=== PATIENT | female | born 1950 | race African-American/Black ===

== ENCOUNTER 2018-12-10 20:18 | Emergency (ER) | payer MEDICARE, MEDICAID ==
[~2018-12-10] VITALS: Ht 170.2 cm; Wt 68.0 kg
[2018-12-10] MEDS ORDERED: SILVER SULFADIA10 GM MC (20:26)
[2018-12-10] MEDS ORDERED: MIDODRINE HCL5 MG ORAL (20:26)
[2018-12-10] MEDS ORDERED: CALCIUM ACETAT667 M1 PO (20:26)
[2018-12-10] MEDS ORDERED: SENSIPAR30 MG ORAL (20:26)
[2018-12-10] MEDS ORDERED: BISACODYL5 MG ORAL (20:26)
[2018-12-10] MEDS ORDERED: MIRTAZAPINE15 M3 ORAL (20:26)
[2018-12-10] MEDS ORDERED: RENVELA2.4 GM ORAL (20:26)
[2018-12-10] MEDS ORDERED: LACTULOSE20 GM/301 ORAL (20:26)
[2018-12-10] MEDS ORDERED: ASPIR 8181 MG ORAL (20:26)
[2018-12-10 20:43] VITALS: BP 130/103
[2018-12-10] MEDS ORDERED: Tylenol #3 tab (300mg/30mg) PO ONE (20:45)
--- NOTE | 2018-12-10 20:45 | NUR ---
ED Nurse Note: pt was brought in by [facility] s/p fall, c/o left knee pain, pt states she was walking to restroom and fell and hit her leg. ptAA&ox4, gcs=15, skin warm and dry, resp even and unlabored, noted deformity and contusion on left knee, +permacath on right upper chest, noted old fistula site on BUE. Noted dressing in BLE, pt states home health nurse came and did dressing because she has ulcer on her legs. 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 noted skin tear on left 2nd and 3rd toe area. 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 RA. blanket provided for extra comfort.
--- NOTE | 2018-12-10 20:48 | Emergency Room Report ---
History of Present Illness General Chief Complaint: Multiple Trauma/Fall Source: Patient (Kelvin Lakhani MD) Present Illness HPI 68-year-old female presents ED for evaluation. Patient brought in by EMS status post fall. States that she tripped and fell at home tonight. In her bathroom. States she normally walks with a walker or wheelchair for assistance. Denies hitting her head or LOC. Complaining of left knee pain. Pain is throbbing, 7 out of 10, nonradiating. Denies any other injuries. History of end-stage renal disease. Gets dialysis Thursday and Thursday. States she is compliant with her dialysis. No other aggravating relieving factors. Denies any other associated symptoms (Kelvin Lakhani MD) Allergies: Coded Allergies: HYDROCHLOROTHIAZIDE (Verified Allergy, Unknown, 12/10/18) lightheaded loss of equilibrium NSAIDS (NON-STEROIDAL ANTI-INFLAMMA (Verified Allergy, Unknown, 12/10/18) PENICILLINS (Verified Allergy, Unknown, 12/10/18) Patient History Past Medical History: DM, HTN, asthma, renal disease, dialysis Past Surgical History: none Pertinent Family History: none Social History: Denies: smoking, alcohol use, drug use Last Menstrual Period: n/a Now: No Immunizations: UTD Reviewed Nursing Documentation: PMH: Agreed; PSxH: Agreed (Kelvin Lakhani MD) Nursing Documentation-PMH Hx Cardiac Problems: Yes - hyperlipidemia Hx Hypertension: Yes - htn Hx Asthma: Yes - asthma Hx Diabetes: Yes - type 2 Hx Dialysis: Yes - shunt upper right chest, dialysis Sat, ,Thu, (Kelvin Lakhani MD) Review of Systems All Other Systems: negative except mentioned in HPI (Kelvin Lakhani MD) Physical Exam Vital Signs Date Time Temp Pulse Resp B/P (MAP) Pulse Ox O2 Delivery O2 Flow Rate FiO2 12/10/18 20:16 98.4 80 18 109/51 98 Room Air Sp02 EP Interpretation: reviewed, normal General Appearance: no apparent distress, alert, GCS 15, non-toxic Head: normocephalic Eyes: bilateral eye normal inspection, bilateral eye PERRL ENT: normal ENT inspection Neck: normal inspection Respiratory: other - permacath R side chest Cardiovascular #1: normal inspection Gastrointestinal: normal inspection Rectal: deferred Genitourinary: no CVA tenderness Musculoskeletal: tender - L knee Neurologic: alert, oriented x3, responsive, motor strength/tone normal, sensory intact, speech normal Psychiatric: normal inspection Skin: other - old AV fistula bilateral upper extremtiies. no bruit detected. Lymphatic: normal inspection (Kelvin Lakhani MD) Procedures Splinting Splinting : Consent: Verbal Location: Left knee Pre-Made Type: knee immobilizer Pre-Proc Neuro Vasc Exam: normal Post-Proc Neuro Vasc Exam: normal Patient Tolerated: Well Complications: None (Saman Alvarenga DO) Medical Decision Making Diagnostic Impression: Primary Impression: Renal failure Additional Impression: Patellar sleeve fracture of left knee ER Course Please refer to the initial note for the history exam and presentation Patient's imaging study does reveal midpatellar fracture therefore patient was placed into a Knee immobilizer On reevaluation patient appears somewhat debilitated On attempt of stenting the patient up with crutches patient is unable to utilize crutches unable to bear weight on one leg Patient has a extremely poor outpatient disposition Request for admission was made and secondary to the patient's insurance is requested for transfer at primary facility Labs Test 12/10/18 21:16 White Blood Count 5.8 K/UL (4.8-10.8) Red Blood Count 3.69 M/UL (4.20-5.40) Hemoglobin 9.9 G/DL (12.0-16.0) Hematocrit 32.9 % (37.0-47.0) Mean Corpuscular Volume 89 FL (80-99) Mean Corpuscular Hemoglobin 26.8 PG (27.0-31.0) Mean Corpuscular Hemoglobin Concent 30.1 G/DL (32.0-36.0) Red Cell Distribution Width 15.0 % (11.6-14.8) Platelet Count 254 K/UL (150-450) Mean Platelet Volume 6.4 FL (6.5-10.1) Neutrophils (%) (Auto) 76.2 % (45.0-75.0) Lymphocytes (%) (Auto) 12.4 % (20.0-45.0) Monocytes (%) (Auto) 9.3 % (1.0-10.0) Eosinophils (%) (Auto) 0.9 % (0.0-3.0) Basophils (%) (Auto) 1.2 % (0.0-2.0) Sodium Level 139 MMOL/L (136-145) Potassium Level 4.0 MMOL/L (3.5-5.1) Chloride Level 105 MMOL/L (98-107) Carbon Dioxide Level 23 MMOL/L (21-32) Anion Gap 11 mmol/L (5-15) Blood Urea Nitrogen 27 mg/dL (7-18) Creatinine 5.4 MG/DL (0.55-1.30) Estimat Glomerular Filtration Rate 9.6 mL/min (>60) Glucose Level 169 MG/DL (74-106) Calcium Level 10.0 MG/DL (8.5-10.1) Total Bilirubin 0.3 MG/DL (0.2-1.0) Aspartate Amino Transf (AST/SGOT) 9 U/L (15-37) Alanine Aminotransferase (ALT/SGPT) 9 U/L (12-78) Alkaline Phosphatase 136 U/L (46-116) Total Creatine Kinase 30 U/L (26-308) Creatine Kinase MB < 0.5 NG/ML (0.0-3.6) Creatine Kinase MB Relative Index 1.6 Total Protein 8.2 G/DL (6.4-8.2) Albumin 2.7 G/DL (3.4-5.0) Globulin 5.5 g/dL Albumin/Globulin Ratio 0.5 (1.0-2.7) (Saman Alvarenga DO) Rhythm Strip Diag. Results EP Interpretation: yes Rate: 95 Rhythm: NSR, no PVC's, no ectopy (Saman Alvarenga DO) Chest X-Ray Diagnostic Results Chest X-Ray Diagnostic Results : Chest X-Ray Ordered: Yes # of Views/Limited/Complete: 1 View Indication: Chest Pain EP Interpretation: Yes Interpretation: no consolidation, no effusion, no pneumothorax Impression: No acute disease Electronically Signed by: Saman Alvarenga DO (Saman Alvarenga DO) Other X-Ray Diagnostic Results Other X-Ray Diagnostic Results : X-Ray ordered: left knee # of Views/Limited Vs Complete: 4 View Indication: Pain EP Interpretation: Yes Interpretation: no soft tissue swelling, other - Acute patellar fracture mid patella, no foreign body Impression: Other - Acute patella fracture Electronically Signed by: Saman Alvarenga DO (Saman Alvarenga DO) Last Vital Signs Date Time Temp Pulse Resp B/P (MAP) Pulse Ox O2 Delivery O2 Flow Rate FiO2 12/10/18 20:16 98.4 80 18 109/51 98 Room Air (Kelvin Lakhani MD) Status: improved (Saman Alvarenga DO) Disposition: XFER [facility]OS[facility] Condition: Improved Kelvin Lakhani MD Dec 10, 2018 20:48 Saman Alvarenga DO Dec 10, 2018 22:08
[2018-12-10 21:25] LABS: BASOPHILS % (AUTO) 1.2 % (0.0-2.0); EOSINOPHILS % (AUTO) 0.9 % (0.0-3.0); HEMATOCRIT 32.9 % (37.0-47.0); HEMOGLOBIN 9.9 G/DL (12.0-16.0); LYMPHOCYTES % (AUTO) 12.4 % (20.0-45.0); MEAN CORPUSCULAR VOLUME 89 FL (80-99); MONOCYTES % (AUTO) 9.3 % (1.0-10.0); NEUTROPHILS % (AUTO) 76.2 % (45.0-75.0); PLATELET COUNT 254 K/UL (150-450); RED BLOOD COUNT 3.69 M/UL (4.20-5.40); WHITE BLOOD COUNT 5.8 K/UL (4.8-10.8)
[2018-12-10 21:34] LABS: ANION GAP 11 mmol/L (5-15); BLOOD UREA NITROGEN 27 mg/dL (7-18); CARBON DIOXIDE 23 MMOL/L (21-32); CHLORIDE 105 MMOL/L (98-107); CREATININE 5.4 MG/DL (0.55-1.30); SODIUM 139 MMOL/L (136-145)
[2018-12-10 21:43] VITALS: BP 94/53
[2018-12-10 21:48] LABS: ALANINE AMINOTRANSFERASE 9 U/L (12-78); ALBUMIN 2.7 G/DL (3.4-5.0); ALBUMIN/GLOBULIN RATIO 0.5 (1.0-2.7); ALKALINE PHOSPHATASE 136 U/L (46-116); ASPARTATE AMINO TRANSFERASE 9 U/L (15-37); BILIRUBIN,TOTAL 0.3 MG/DL (0.2-1.0); CKMB < 0.5 NG/ML (0.0-3.6); CREATINE KINASE 30 U/L (26-308)
--- NOTE | 2018-12-10 22:37 | NUR ---
ED Nurse Note: called [facility] to give report, per Yolanda from [facility], don't need report at this time. advised staff to call back if needed info.
[2018-12-10 22:40] VITALS: BP 95/67
--- NOTE | 2018-12-10 22:40 | NUR ---
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
== END 2018-12-10 22:40 | disposition short-term general hospital (02) ==
LOC: EDBD 20:18 → EMR 20:48
DX: S82.092A Other fracture of left patella, initial encounter for closed fracture (principal); W01.0XXA Fall on same level from slipping, tripping and stumbling without subsequent striking against object, initial encounter; Y92.002 Bathroom of unspecified non-institutional (private) residence as the place of occurrence of the external cause; I12.0 Hypertensive chronic kidney disease with stage 5 chronic kidney disease or end stage renal disease; E11.22 Type 2 diabetes mellitus with diabetic chronic kidney disease; N18.6 End stage renal disease; Z99.2 Dependence on renal dialysis; J45.909 Unspecified asthma, uncomplicated; E78.5 Hyperlipidemia, unspecified; Z88.0 Allergy status to penicillin; Z88.8 Allergy status to other drugs, medicaments and biological substances
CPT/HCPCS: 29505; 36415; 71045; 80053; 82550; 82553; 85025; 99284